=== PATIENT | male | born 1960 | race Hispanic/Latino ===

== ENCOUNTER 2019-12-10 15:43 | Inpatient (IN) | payer OTHER, SELFPAY ==
[2019-12-10] MEDS ORDERED: Acetaminophen 325 MG TAB PO PRN (20:03)
--- NOTE | 2019-12-10 20:55 | HP ---
CHIEF COMPLAINT: Abdominal pain. HISTORY OF PRESENT ILLNESS: This is a 58-year-old male with no medical history , who presented to the [place] emergency Room with a complaint of abdominal pain. The patient reports that it started 8 days ago, is constant, non-positional, and he denies any prior history. He reports the pain is 10/10 and located just below his belly button. He denies any precipitating factors or relieving factors. Denies any nausea, vomiting, or diarrhea. He denies any radiation of the pain, and has not been taking any pain medication at home. He waited to see if the pain would get better. However, continued to get worse, and he presented to the emergency room. He does report fevers and chills over the past 2 nights, but none during the day. In the emergency room in [place], the patient was found to have a 7 to 8 cm abscess, likely diverticular in origin along with diverticulitis. The patient received Levaquin 500 mg IV, metronidazole 500 mg IV, Zosyn 3.375 g, and Toradol 30 mg IV, and hospitalist here called for admission. The patient denies any prior history of colonoscopy. PAST MEDICAL HISTORY: Denies. PAST SURGICAL HISTORY: Denies. MEDICATION: Denies. ALLERGIES: DENIES. FAMILY HISTORY: Significant for diabetes in the mother. SOCIAL HISTORY: The patient has a 60-[id number] history of tobacco use and is current. Denies alcohol or drugs. His daughter is his surrogate decision maker , and he is a full code. REVIEW OF SYSTEMS: Negative for headache, nausea, vomiting, chest pain, or difficulty breathing. Positive for about 10 lb weight loss. All remaining review of systems is reviewed and negative. PHYSICAL EXAMINATION: VITAL SIGNS: Out in [place], blood pressure 97/55, pulse 80, respirations 16, temperature 97.6, saturation 98% on room air. GENERAL: Awake, alert, and responsive, in no apparent distress. Able to speak in full sentences. HEENT: His pupils are equal and round. Oral mucosa is pink and moist. NECK: Supple and nontender. LYMPHATICS: No palpable cervical or supraclavicular lymphadenopathy. LUNGS: Clear to auscultation bilateral. No audible wheezing, rhonchi, or rales. HEART: Normal S1 and S2. Regular rate and rhythm. No audible murmurs. ABDOMEN: Soft. Present bowel sounds. Tenderness to palpation inferior to the umbilicus, unable to palpate any abnormalities. No rebound or guarding. EXTREMITIES: No clubbing, cyanosis, or edema. SKIN: No visible rashes. NEUROLOGIC: No focal deficits. VASCULAR: 2+ dorsalis pedis pulses. PSYCHIATRIC: Appears euthymic. LABORATORY DATA: CT scan, personally reviewed; inflammatory process in the left lower quadrant. Left pelvis with extraluminal gas collection within this inflammatory process measuring 7 to 8 cm. Confined perforation with abscess formation suspected. Diverticulitis would be the suspected etiology. CBC; 15.3, 15.6, 48.7, 343. Chemistry; 137, 4.0, 101, 24, 6, 0.75, 95. Liver function tests are normal. Urinalysis shows trace blood, 0 to 3 red blood cells, 0 to 3 white blood cells, small bilirubin. IMPRESSION: 1. Intra-abdominal abscess, likely diverticular in origin associated with diverticulitis. 2. Tobacco abuse. PLAN: 1. Admission to the hospital. 2. We will continue antibiotics with Levaquin and metronidazole. 3. Consultation with General Surgery for options for treatment. 4. Manage pain. We will order Tylenol, [place], and Toradol to start. 5. Clear liquids for now. 6. Nicotine replacement as needed. 7. DVT prophylaxis with SCDs. 8. GI prophylaxis not indicated. 9. Code status is full. Surrogate decision maker is the patient's daughter. 10. Reviewed the plan of care with the patient through the use of the hospital ironer hand system as the patient is primarily B[place]ian speaking. He had no questions or further needs at the end of evaluation. 11. The patient is at high risk with this current presentation. Job ID: [id number] [facility]
[2019-12-10] MEDS: Nicotine 14 MG PATCH TD SCH (21:55)
[2019-12-10] MEDS: metroNIDAZOLE 500 MG in Premix Bag 1 BAG IVPB SCH (21:55)
[2019-12-10] MEDS: Ketorolac Tromethamine 30 MG/ML VIAL IVP PRN (23:59)
[2019-12-11 00:30] VITALS: BMI 26.9
[2019-12-11] MEDS: metroNIDAZOLE 500 MG in Premix Bag 1 BAG IVPB SCH ×3 (05:14→21:04)
[2019-12-11 06:09] LABS: #Eosinphils 0.1 thou/uL (0.0-0.7); #Lymphocytes 1.6 thou/uL (1.20-3.40); #Monocytes 1.7 thou/uL (0.11-0.59); #Neutrophils 10.1 thou/uL (1.40-6.50); %Basophils 0.1 % (0.0-1.0); %Monocytes 12.6 % (0.0-10.0); %Neutrophils 74.3 % (42.0-75.0); Mean Corpuscular HGB CONC 32.3 g/dL (32.0-36.0); Mean Corpuscular Hemoglobin 31.2 pg (27.0-31.0); Mean Corpuscular Volume 96.6 fL (78.0-98.0); Mean Platelet Volume 7.4 fL (7.4-10.4); Platelet Count 339 thou/uL (130-400); RBC Distribution Width 10.7 % (11.5-14.5); White Blood Cell (WBC) Count 13.6 thou/uL (4.8-10.8)
[2019-12-11 06:31] LABS: Anion Gap 13 mmol/L (10-20); BUN (Urea Nitrogen) 12 mg/dL (8.4-25.7); Calc. Creatinine Clearance 108 mL/min (70-130); Calcium 8.8 mg/dL (7.8-10.44); Carbon Dioxide 23 mmol/L (22-29); Chloride 101 mmol/L (98-107); Estimated GFR-MDRD Greater than 90; Glucose 90 mg/dL (70-105); Sodium 133 mmol/L (136-145)
--- NOTE | 2019-12-11 08:23 | PDOC.HOSPP ---
- Subjective Encounter Date: 12/11/19 (f/u intra-abdominal abscess) Encounter Time: 08:21 Subjective: Pt without complaints today - denies any further f/c, denies n/v, reports no pain this morning. - Objective Vital Signs & Weight: Vital Signs (12 hours) Temp Pulse Resp BP Pulse Ox 12/11/19 05:16 101/75 12/11/19 04:24 98.2 F 86 16 90/62 99 12/10/19 22:02 103/75 12/10/19 20:50 95 12/10/19 20:25 98.7 F 90 16 87/74 L Weight Weight 156 lb 8.451 oz I&O: 12/10/19 12/11/19 12/12/19 06:59 06:59 06:59 Intake Total 470 Balance 470 Result Diagrams: 12/11/19 05:47 12/11/19 05:47 Hospitalist ROS - Medication Medications: Active Medications Generic Name Dose Route Start Last Admin Trade Name Freq PRN Reason Stop Dose Admin Metronidazole 500 mg/ Device 100 mls @ 100 mls/hr 12/10/19 22:00 12/11/19 05: 14 IVPB 100 mls Q8HR CALI Administration Ketorolac Tromethamine 30 mg 12/10/19 20:05 12/10/19 23:59 Toradol IVP 12/15/19 20:06 30 mg Q6H PRN Administration Moderate Pain (4-6) Nicotine 14 mg 12/10/19 21:00 12/10/19 21:55 Nicoderm Patch TD Not Given Q24HR CALI - Exam General Appearance: NAD Heart: RRR, no murmur Respiratory: CTAB, no wheezes, no rales, no ronchi Gastrointestinal: soft, non-tender, non-distended, normal bowel sounds Gastrointestinal - other findings: no tenderness on exam today. Extremities: no cyanosis, no clubbing, no edema Psychiatric: normal affect Hosp A/P (1) Intra-abdominal abscess Code(s): K65.1 - PERITONEAL ABSCESS Status: Acute (2) Diverticulitis Code(s): K57.92 - DVTRCLI OF INTEST, PART UNSP, W/O PERF OR ABSCESS W/O BLEED Status: Acute (3) Tobacco abuse Code(s): Z72.0 - TOBACCO USE Status: Chronic - Plan Pt overall doing well - slight decrease in WBC count. Continue levaquin/flagyl , Gen surgery consult, nicotine replacement as needed,and clear liquid diet. dvt prophy - ambulatory gi prophy - not indicated code status full reviewed plan of care with patient through hospital sustainability analyst system, no questions or further needs at end of eval.
[2019-12-11 11:40] LABS: INR-International Normal Ratio 1.1; PTT 32.2 sec (22.9-36.1); Prothrombin Time 14.2 sec (12.0-14.7)
[2019-12-11] MEDS ORDERED: Sodium Bicarbonate 2.5 MEQ/5 ML VIAL ONE (12:56)
[2019-12-11] MEDS ORDERED: Fentanyl 100 MCG/2 ML VIAL ONE (12:56)
[2019-12-11] MEDS ORDERED: Midazolam HCl 2 mg/2 ml Vial ONE (12:57)
--- NOTE | 2019-12-11 14:26 | CT ---
CT-guided pelvic abscess drainage Conscious sedation: At least 40 minutes were spent with the patient for conscious sedation. FINDINGS: After explaining the procedure and answering all questions, limited CT imaging of the pelvi s was performed. An anterior approach was planned. Sterile technique, buffered local anesthesia, CT guidance, conscious sedation, and a lower anterior a pproac were used to carefully advance a 19-gauge trocar needle to the gas and fluid containing abscess cavity within the central pelvis, carefully threading the needle between bowel loops. A 0.035 Amplatz guidewire was used to hold position. Tract was dilated to 10 Algerian. An 8 Algerian lock ing loop UreSil catheter was then placed into the abscess cavity. A total of 38 cc thick purulent material was aspirated, completely decompressed the cavity.. A portion sent to laboratory for analysi s. Catheter was secured externally and left draining to gravity. Patient tolerated the procedure well and was returned in improved condition. IMPRESSION : Technically successful CT-guided abscess drainage.
[2019-12-11] MEDS: Ketorolac Tromethamine 30 MG/ML VIAL IVP PRN ×2 (15:01→23:35)
[2019-12-11 15:39] LABS: BF Color Brown; Body Fluid Source Abscess Fluid; Clarity Cloudy/Turbid (Clear); Tube # EDTA
[2019-12-11] MEDS: Sodium Chloride 0.9% 1,000 ML IV SCH ×2 (17:13→21:06)
--- NOTE | 2019-12-11 18:03 | CON ---
DATE OF CONSULTATION: 12/11/2019 REQUESTING PHYSICIAN: Seda Shaw MD HISTORY OF PRESENT ILLNESS: This is a 58-year-old previously healthy man who presented to the emergency department in [place] yesterday. The patient reported insidious onset lower abdominal pain, which started approximately 9 days ago. The pain intensified to 10/10 yesterday, associated with some chills over the previous 3 days. The patient denied any fevers. He denies any nausea, vomiting, or diarrhea. He denies any hematochezia or melena. The patient admits to 13-pound weight loss over the last 1 months, which is unexplained. He denies any anorexia or early satiety. PAST MEDICAL HISTORY: Denies any previous medical problems. PAST SURGICAL HISTORY: The patient denies any previous surgeries. SOCIAL HISTORY: He is employed in the [employer]. He smokes one pack of cigarettes per day and has done so for about 40 years. He admits to occasional intake of ethanol in moderate amount. The patient denies any illicit drug abuse. FAMILY HISTORY: Denies any family history of diabetes mellitus, hypertension, heart disease, or cancer. CURRENT MEDICATIONS: None. ALLERGIES: THE PATIENT DENIES ANY KNOWN DRUG ALLERGIES. REVIEW OF SYSTEMS: Ten-point review of systems essentially unremarkable except as stated in past medical history and chief complaint. PHYSICAL EXAMINATION: GENERAL: A 58-year-old normally developed man who is otherwise coherent and interactive, and appears stated age. The patient is alert and oriented x3, appears to be in no significant acute distress at the time of my evaluation. VITAL SIGNS: Blood pressure 101/75, pulse 86, respiratory rate is 16, maximum temperature since admission 98.7 degrees Fahrenheit, and oxygen saturation is 99% on room air. HEENT: Pupils equally round and reactive to light bilaterally. HEART: Regular rate and rhythm. No murmurs or gallops auscultated. LUNGS: Clear to auscultation bilaterally. Breathing, regular and nonlabored. ABDOMEN: Soft and nondistended. He has lower abdominal tenderness to palpation, left greater than right. He clearly has no peritoneal signs on examination. Liver and spleen otherwise nonpalpable below costal margins. NEUROLOGIC: No focal deficits present. LABORATORY FINDINGS: Today include a CBC with 13,600 white blood cells down from 15,300 yesterday, hemoglobin and hematocrit are stable at 14.0 and 43.4 respectively, and platelet count is 339,000. PTT and INR normal at 32.2 seconds and 1.1 respectively. Metabolic profile: Sodium 133, potassium 4.0, chloride is 101, bicarb is 23, BUN 12, creatinine 0.77, and glucose 90. I have personally reviewed the CT scan of the abdomen and pelvis, which was obtained yesterday, and this reveals a left lower quadrant inflammatory process with extraluminal gas and an 8-cm fluid collection adjacent to the sigmoid colon. IMPRESSIONS: Acute sigmoid colon diverticulitis with perforation and 8 cm diverticular abscess. There is no clinical evidence of generalized peritonitis at this time. RECOMMENDATIONS: 1. We will ask Interventional Radiology to evaluate the patient for percutaneous abscess drainage. 2. Agree with current antibiotic regimen including levofloxacin and metronidazole intravenously and this could be converted to p.o. once the abdominal pain has resolved. It must be noted that the patient had a bowel movement yesterday and is passing flatus today. 3. There is no acute surgical indication for this patient at this time. 4. The patient will need 2-week course of oral antibiotics post discharge and then will need a repeat CT scan of the abdomen and pelvis at that time as well as follow up with General Surgery on an outpatient basis. Above findings and recommendations have been discussed with the patient who indicates understanding of information given. I have answered his questions. Thank you again, Dr. Shaw, for allowing me the opportunity to participate in the care of this patient. Job ID: [id number]
[2019-12-11] MEDS: HYDROcodone/Acetaminophen 5/325 mg Tablet PO PRN (19:07)
[2019-12-11] MEDS: Nicotine 14 MG PATCH TD SCH (21:03)
--- NOTE | 2019-12-11 23:04 | PRG ---
DATE OF SERVICE: 12/11/2019 SUBJECTIVE: The patient was seen during evening rounds, resting comfortably in no acute distress. The patient is postop day zero, status post CT-guided abscess drainage for a diverticular abscess. The patient is tolerating a clear liquid diet and his pain has been controlled according to the patient's nurse. OBJECTIVE: VITAL SIGNS: Stable, afebrile. PLAN: Continue antibiotics. The patient will need 2-week course of oral antibiotics post discharge and will need a repeat CT scan of the abdomen and pelvis. Job ID: [id number]
[2019-12-12] MEDS: metroNIDAZOLE 500 MG in Premix Bag 1 BAG IVPB SCH (05:09)
[2019-12-12] MEDS: HYDROcodone/Acetaminophen 5/325 mg Tablet PO PRN (05:11)
[2019-12-12 06:35] LABS: #Basophils 0.1 thou/uL (0.0-0.2); #Eosinphils 0.1 thou/uL (0.0-0.7); #Monocytes 1.2 thou/uL (0.11-0.59); #Neutrophils 7.2 thou/uL (1.40-6.50); %Basophils 0.5 % (0.0-1.0); %Eosinophils 0.9 % (0.0-10.0); %Lymphocytes 19.3 % (21.0-51.0); %Monocytes 11.4 % (0.0-10.0); %Neutrophils 67.9 % (42.0-75.0); Hemoglobin 15.5 g/dL (14.0-18.0); Mean Corpuscular HGB CONC 33.5 g/dL (32.0-36.0); Mean Corpuscular Hemoglobin 32.6 pg (27.0-31.0); Mean Corpuscular Volume 97.3 fL (78.0-98.0); Mean Platelet Volume 7.7 fL (7.4-10.4); Platelet Count 404 thou/uL (130-400); RBC Distribution Width 10.8 % (11.5-14.5); Red Blood Cell (RBC) Count 4.76 mill/uL (4.70-6.10); White Blood Cell (WBC) Count 10.6 thou/uL (4.8-10.8)
[2019-12-12 06:55] LABS: Anion Gap 12 mmol/L (10-20); BUN (Urea Nitrogen) 16 mg/dL (8.4-25.7); Calc. Creatinine Clearance 112 mL/min (70-130); Calcium 9.1 mg/dL (7.8-10.44); Carbon Dioxide 24 mmol/L (22-29); Chloride 103 mmol/L (98-107); Estimated GFR-MDRD Greater than 90; Glucose 95 mg/dL (70-105); Magnesium 2.1 mg/dL (1.6-2.6); Potassium 4.4 mmol/L (3.5-5.1); Sodium 135 mmol/L (136-145)
[2019-12-12] MEDS: Sodium Chloride 0.9% 1,000 ML IV SCH ×2 (08:55→16:51)
[2019-12-12] MEDS: metroNIDAZOLE 500 MG TAB PO SCH ×2 (09:00→14:53)
[2019-12-12] MEDS: Ketorolac Tromethamine 30 MG/ML VIAL IVP PRN (09:01)
--- NOTE | 2019-12-12 12:19 | RAD ---
Fluoroscopic abscess tube check HISTORY: Pelvic abscess. FINDINGS: After explaining the procedure and answering all questions, sterile technique was used to c arefully inject approximately 18 cc of Isovue-300 contrast through the left lower quadrant abscess drain. There was immediate opacification of a previously decompressed abscess cavity. Contrast did ex tend to the recesses of the cavity, but was never seen to enter bowel. The excess contrast was aspirated, along with a large amount of gas that continued to be aspirated, w ell beyond the volume of contrast or any gas that had previously been within the cavity. Catheter was flushed with 8 cc sterile saline. Patient tolerated the procedure well and was returned in unchanged condition. 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 Contrast injection was unable to document and characterize that connection. Findings were called to Dr. Crooks at the time the exam Code CR.
--- NOTE | 2019-12-12 14:14 | PRG ---
DATE OF SERVICE: 12/12/2019 SUBJECTIVE: Mr. Luis is 58-year-old man, admitted with acute sigmoid colon diverticulitis with perforation and 8-cm diverticular abscess. The patient is postoperative day #1 status post percutaneous drainage of the said abscess. He is awake and alert today. He denies any abdominal pain. He is tolerating diet, passing flatus, but denies any bowel movements. He ambulates without any difficulties. OBJECTIVE: VITAL SIGNS: Today include blood pressure of 112/77, pulse is 60, respiratory rate is 16, temperature is 98.1 degrees Fahrenheit, and oxygen saturation is 97% on room air. ABDOMEN: Soft, nontender, and nondistended. The percutaneous drainage catheter is in place, returns purulent fluid. The patient underwent a tube check today and there was no evidence of fistula into the colon. The radiologist, however, reported large amount of gas which was aspirated, although there was no contrast extension into the colon, which may indicate the perforation, but no overt fistula. The patient is currently on oral levofloxacin and metronidazole. IMPRESSION: Acute sigmoid colon diverticulitis with perforation and now drained diverticular abscess. RECOMMENDATION: 1. Continue with a 2-week course of levofloxacin and metronidazole on outpatient basis. 2. The patient will be educated on how to care for the percutaneous drainage catheter. 3. He requires repeat CT scan of the abdomen and pelvis prior to clinic visit on 12/26/2019. 4. I have discussed the above with the patient and he indicates understanding of the information provided. There is no acute surgical indication for this patient at this time. 5. I have also informed the admitting service that the patient may be discharged home at their discretion. Job ID: [id number]
--- NOTE | 2019-12-12 14:33 | CT ---
CT-guided pelvic abscess drainage Conscious sedation: At least 40 minutes were spent with the patient for conscious sedation. FINDINGS: After explaining the procedure and answering all questions, limited CT imaging of the pelvi s was performed. An anterior approach was planned. Sterile technique, buffered local anesthesia, CT guidance, conscious sedation, and a lower anterior a pproac were used to carefully advance a 19-gauge trocar needle to the gas and fluid containing abscess cavity within the central pelvis, carefully threading the needle between bowel loops. A 0.035 Amplatz guidewire was used to hold position. Tract was dilated to 10 [place]. An 8 Tu[place] lock ing loop UreSil catheter was then placed into the abscess cavity. A total of 38 cc thick purulent material was aspirated, completely decompressed the cavity.. A portion sent to laboratory for analysi s. Catheter was secured externally and left draining to gravity. Patient tolerated the procedure well and was returned in improved condition. IMPRESSION : Technically successful CT-guided abscess drainage. Transcribed Date/Time: 12/12/2019 2:32 PM
[2019-12-12 15:54] VITALS: BP 120/75; TEMP 97.6
--- NOTE | 2019-12-12 19:02 | DIS ---
DATE OF ADMISSION: 12/10/2019 DATE OF DISCHARGE: 12/12/2019 DISCHARGE DISPOSITION: Home. FOLLOWUP: 1. Follow up with primary care physician at [facility] in 1 week. 2. Follow up with Dr. Nahid Crooks on December 26, 2019. Patient was advised to get CT scan of the abdomen and pelvis with oral and IV contrast, either on 23 of December or [address] scan order was provided to the patient. Patient was seen and examined on the day of discharge. Denies any new complaints. No fever, chills, or abdominal pain. DISCHARGE MEDICATIONS: 1. Levaquin 500 mg daily for two weeks. 2. Flagyl 500 mg 3 times daily for two weeks. 3. Florastor 250 mg daily for a month. INPATIENT MARKETING EXECUTIVE: General Surgery, Dr. Crooks. BRIEF HOSPITAL COURSE: Patient is a 58-year-old male, who presented to the emergency room with abdominal discomfort. The CT scan of the abdomen was consistent with acute sigmoid colon diverticulitis with a perforation and an 8 cm diverticular abscess. He was evaluated by General Surgery, Dr. Crooks. He underwent a CT-guided abscess drainage. He has been educated on the drainage tube care. He will require a CT scan after 2 weeks. His WBC count improved from 15.3 to 10.6. The abscess cultures are pending. At this time, it is gram-negative amber. Patient was advised to follow up on the final cultures. FINAL DIAGNOSES: 1. Sepsis secondary to acute sigmoid diverticulitis with abscess, status post CT drainage, present on admission. 2. Ongoing tobacco abuse. 3. Hyponatremia. Patient understands the above plan of care. TIME SPENT: Time coordinating the discharge of this patient was 34 minutes. Job ID: [id number]
[2019-12-12] MEDS ORDERED: Saccharomyces boulardii 250 MG CAP PO SCH (21:00)
== END 2019-12-12 17:05 | disposition home or self-care (01) | DRG 872 ==
LOC: SURG B 15:43
PROVIDERS: ADMIT Internal Medicine; ATTEND Internal Medicine
PROC: 0W9H30Z Drainage of Retroperitoneum with Drainage Device, Percutaneous Approach (ICD-10-PCS; principal; 2019-12-11)
DX: A41.9 Sepsis, unspecified organism (principal); K57.20 Diverticulitis of large intestine with perforation and abscess without bleeding; F17.210 Nicotine dependence, cigarettes, uncomplicated; E87.1 Hypo-osmolality and hyponatremia
CPT/HCPCS: 36415; 49020; 76000; 77002; 80048; 83735; 85025; 85060; 85610; 85730; 87070; 87077; 87186; 87205; 89051; J1885; J1956; J2250; J3010

== ENCOUNTER 2020-01-01 10:32 | Outpatient (CLI) | payer OTHER ==
[~2020-01-01 10:32] MED LIST: Iopamidol-370 76% 500 ML 1 ML ONE
--- NOTE | 2020-01-01 14:32 | CT ---
CT abdomen and pelvis with IV and oral contrast HISTORY: Abdominal abscess. Decreasing output of drain. COMPARISON: 12/10/2019. FINDINGS: The lung bases are clear. Solid organs are intact. No free air or free fluid. Urinary bladd er is unremarkable. Left lower quadrant anterior percutaneous abscess drain remains in place. The coil is centered within a completely decompressed cavity contains a small amount of gas. No remaining fluid. Minimal adjacent fat stranding. Dystrophic calcification within the prostate gland. There are degenerative changes of lumbar spine. IMPRESSION : Left lower quadrant abscess cavity is completely decompressed around the indwelling percutaneous drai n. No new abnormalities.
== END 2020-01-01 10:33 | disposition home or self-care (01) ==
LOC: BICCT 10:32
PROVIDERS: ATTEND Surgery
DX: K65.1 Peritoneal abscess (principal)
CPT/HCPCS: 74177; Q9967